=== PATIENT | female | born 1985 | race Caucasian/White ===

== ENCOUNTER 2019-06-30 04:53 | Emergency (ER) | payer BC, SELFPAY ==
[2019-06-30 04:55] VITALS: BP 93/79; PULSE 58; RESP 18; TEMP 36.6; O2SAT 100; BMI 23.3
--- NOTE | 2019-06-30 05:18 | US_ITS ---
STUDY: FIRST TRIMESTER OBSTETRICAL ULTRASOUND REASON FOR EXAM: Female, 33 years old. Bleeding LMP: 03/05/2019 TECHNIQUE: Transvaginal TECHNICAL QUALITY: Adequate. PRIOR ULTRASOUND: None. FINDINGS: There is an irregular deformed gestational sac in the lower uterine segment. The mean sac diameter (MSD) measures 9.2 mm, indicating an estimated gestational age (EGA) of 5 weeks, 4 days. The gestational sac shape is within normal limits. There is no demonstrated yolk sac. The placenta is non-visualized. There is no demonstrated embryo ( pole). The uterus measures 8.3 x 5.3 x 4.1 cm. There is no demonstrated uterine fibroid. The cervix is closed. The right ovary measures 2.1 x 2.9 x 1.4 cm. There is no right ovarian cyst. There is no visualized right adnexal mass or complex lesion. The left ovary measures 4.7 x 2 x 2.3 cm. There is no left ovarian cyst. There is no visualized left adnexal mass or complex lesion. There is no fluid in the cul de sac. US/Transvaginal w/Preg US IMPRESSION: There is an irregular deformed gestational sac in the lower uterine segment without pole or yolk sac. Electronically Signed: Marino Prajapati, at 7:03 EDT Tel , Service support ,
[2019-06-30] MEDS: Ondansetron 4 MG/2 ML Vial IV (05:37)
[2019-06-30] MEDS: Morphine 4 MG/ML Syringe IV (05:37)
[2019-06-30 05:38] LABS: Absolute Lymphocyte Count 2.27 X10^3/uL (0.83-4.51); Absolute Neutrophil Count 8.2 X10^3/uL (2.0-7.7); Basophil# 0.06 X10^3/uL; Basophil% 0.5 % (0-1); Eosinophil# 0.26 X10^3/uL; Eosinophils% 2.2 % (0-5); Hematocrit 41.9 % (37-47); Lymphocyte # 2.27 X10^3/ul (4.0); Lymphocyte % 19.5 % (19-41); Mean Corp Hgb Conc 33.4 g/dL (32-36); Mean Corpuscular Hgb 33.1 pg (27.0-32.0); Mean Corpuscular Volume 99.1 fL (81-99); Mean Platelet Vol. 9.4 fl (6.2-12.0); Monocyte# 0.81 X10^3/uL; NRBC Flagged by Analyzer 0 % (0-5); Neutrophil # 8.18 X10^3/uL (2.7-7.7); Neutrophil % 70.4 % (47-70); Platelet Count 313 K/mm3 (150-450); RBC Distribution Width CV 11.9 % (11.6-14.6); RBC Distribution Width SD 43.5 fl (35.1-43.9); Red Blood Count 4.23 M/mm3 (4.2-5.4); White Blood Count 11.6 K/mm3 (4.4-11.0)
--- NOTE | 2019-06-30 05:53 | ED.VISSUMM ---
- ER Visit Summary Date of Service: 06/30/19 Chief Complaint: Pelvic pain, vaginal bleeding History of Present Illness: The patient is a 33 F who presents with and vaginal bleeding. She is a G1, P0. She actually saw Dr. Cespedes in the office yesterday and had blood work and pelvic ultrasound. She was told that she had twin gestations one gestational sac with a yolk sac and one gestational sac without yolk sac. She is scheduled for repeat blood work tomorrow. She was having some spotting at her appointment. However she reports increased pelvic cramping since that time as well as increased vaginal bleeding which she states is now severe and bright red. No clots. No fevers chest pain shortness of breath. Physical Examination: Afebrile blood pressure 93/79 vitals otherwise normal Moist mucous membranes Heart regular rate and rhythm Lungs clear Abdomen soft Pelvic examination, speculum exam shows heavy/severe bright red vaginal bleeding with large clots. Test Results: CBC notable for white count 11.6. Quantitative hCG of 5132. Blood type is Rh+. Pelvic ultrasound shows an irregular deformed gestational sac in the lower work-up as above. Uterine segment. Emergency Department Course and Treatment: Given that she reports twin gestations on yesterday's ultrasound and today we only see one regular deformed sac she has likely already continuously aborted 1 gestation and has an incomplete of the second gestation. Her bleeding has improved. Her pain is improved as well. I did speak to the garment parts cutter machine who is covering for the practice who agrees with plan for close outpatient follow-up. I did give the patient clear return precautions that if her bleeding becomes heavy again or she has increased pain to return here for reevaluation. Treatment Plan: [] Disposition: Discharge Impression: Incomplete This note was generated with Aver[employer] software. It may contain incorrect words, spelling, and punctuation that were not noted in review of the chart prior to signing ED Disposition - Plan for ED Patient: Referrals: Care Physician,No Primary [Primary Care Provider] -
[2019-06-30 06:26] LABS: hCG Titer Quant., Serum 5132 mIU/mL (1-3)
[2019-06-30 06:56] VITALS: RESP 16
--- NOTE | 2019-06-30 07:17 | ED.DEP ---
ED Disposition - Plan for ED Patient: Instructions: MISCARRIAGE (Incomplete) Referrals: Care Physician,No Primary [Primary Care Provider] - aHlina Darnell MD [STAFF PHYSICIAN] -
--- NOTE | 2019-06-30 07:17 | DCINST.ED_ITS ---
ED Disposition - Plan for ED Patient: Instructions: MISCARRIAGE (Incomplete) Referrals: Care Physician,No Primary [Primary Care Provider] - Halina Darnell MD [STAFF PHYSICIAN] -
[2019-06-30] MEDS: Ketorolac 30 MG/ML Syringe IV (07:34)
== END 2019-06-30 07:56 | disposition home or self-care (01) ==
PROVIDERS: Emergency Provider Emergency Medicine
DX: O03.4 Incomplete spontaneous abortion without complication (principal)
CPT/HCPCS: 76817; 84702; 85025; 86900; 86901; 96374; 96375; 99284; A4216; J2405

== ENCOUNTER 2021-03-08 03:25 | Inpatient (IN) | payer BC, SELFPAY ==
[2021-03-08] VITALS (45 sets, daily range): BP systolic 102–145; BP diastolic 53–87; PULSE 72–101; RESP 12–20; TEMP 36.6–37.3; O2SAT 92–99; BMI 31.4
--- NOTE | 2021-03-08 | FALS_PTH ---
PATIENT: YAIMA GALAVIZ LOC: [facility] U#:[id number] AGE/SX: 35/F ROOM: WP008 RE03/08/[address]: Dr. Imelda Kerns MD : 1985 BED: 1 DIS: 03/10/2021 SPEC #: [id number] RECD: 03/09/21 04:20 STATUS: NAINA GARCIAAnna #: [id number] KIRA: 03/08/21 00:[address]: Imelda Kerns DEPT: SURGICAL PATHOLOGY RECD BY: Valdo Tolentino ENTERED: 03/09/21 07:42 SP TYPE: FALL TUBES OTHR DR: No Primary Care Phys Tissues: Fallopian tube Procedures: Surgery Specimen Level II HEADER OPERATION: Tubal ligation PRE-OP DIAGNOSIS: Sterilization TISSUE SUBMITTED: Fallopian tubes MICROSCOPIC DIAGNOSIS Bilateral fallopian tubes, salpingectomy: Bilateral fallopian tubes including fimbrial ends, no pathologic diagnosis. MARTINEZ:fozia 03/10/2021 MICROSCOPIC DESCRIPTION Slides are reviewed. GROSS DESCRIPTION Received in fixative is one container labeled with the patient's name and designated bilateral fallopian tubes. The specimen consists of bilateral fallopian tubes including fimbrial ends measuring 6 cm in length and 0.5 cm in diameter and 5 cm in length and 0.5 cm in diameter. The fallopian tubes are not identified as right or left. Sections reveal unremarkable cut surfaces. Foster Parent sections are submitted in two cassettes with each cassette containing one fallopian tube. / SJ:fozia 03/09/21 TC:4 CPT: 06554 x2
--- NOTE | 2021-03-08 03:27 | HP.PCM_ITS ---
History Date of Admission: 03/08/21 Final CHOCO: 03/08/21 Gestational age: 40 Weeks and 0 Days History of this : Patient presents with ctxs. Surgical History: Surgical History (Last Updated 03/08/21 @ 03:[address] Imelda Kerns MD) H/O LEEP Z98.890 Hx of eye surgery Z98.890 Previous back surgery Z98.890 Allergies amoxicillin Allergy (Verified 03/08/21 02:08) Hives Home Medications: Home Medications Vits [Prenatabs FA] 1 tab PO DAILY 06/30/19 Smoking Status: Current some day smoker Alcohol: None Number of Fetus(es): 1 NST - FHR Rate Baby A Baseline: 150 Variability:: Moderate Accelerations:: 15 x 15 Decelerations:: None Uterine Activity:: Q 3-5 minutes History Past Pregnancies: Past Pregnancies Delivery Date Name GA/ Weeks Outcome Route Wt Infant Sex Labor Length Anesthesia Delivery Location Provider FOB Labs: See [facility] H[facility]P Physical Exam Vitals: Vital Signs Pulse BP 83 144/79 H 03/08/21 02:02 03/08/21 02:02 General: Alert, Oriented x3 Abdomen: Soft, Non Tender, Non-Distended, Gravid Neurological: Cranial nerves II-XII grossly intact [employer]ER [employer] BRUSHES: Normal external genitalia Estimated gestational size: Appropriate for gestational size Presentation: Cephalic Cervix Dilation (cm): 2.5 Station: -2 Effacement (%): 90 Assessment/Plan This is a 35 year-old, at 40 weeks gestational age. Admit to L&D for labor COVID test ordered Elevated BP - likely from pain but will check preE labs Pain - epidural H/o LEEP - some scar tissue in cervix GBS negative EFW - less than 4500g, patient with adequate pelvis
[2021-03-08] MEDS: Lactated Ringers 1,000 ML 50 ML IV (03:50)
[2021-03-08] MEDS: Lactated Ringers 500 ML 999 ML IV (03:51)
[2021-03-08 04:01] LABS: Absolute Lymphocyte Count 1.23 X10^3/uL (0.83-4.51); Absolute Neutrophil Count 10.9 X10^3/uL (2.0-7.7); Basophil# 0.03 X10^3/uL; Basophil% 0.2 % (0-1); Eosinophil# 0.06 X10^3/uL; Eosinophils% 0.5 % (0-5); Hematocrit 40.1 % (37-47); Hemoglobin 13.3 g/dL (12.0-15.0); Lymphocyte # 1.23 X10^3/ul (4.0); Lymphocyte % 9.5 % (19-41); Mean Corp Hgb Conc 33.2 g/dL (32-36); Mean Corpuscular Hgb 31.4 pg (27.0-32.0); Mean Corpuscular Volume 94.8 fL (81-99); Mean Platelet Vol. 10.6 fl (6.2-12.0); Monocyte% 5.4 % (0-10); NRBC Flagged by Analyzer 0 % (0-5); Neutrophil # 10.86 X10^3/uL (2.7-7.7); Neutrophil % 83.9 % (47-70); Platelet Count 216 K/mm3 (150-450); RBC Distribution Width CV 13.2 % (11.6-14.6); RBC Distribution Width SD 45.8 fl (35.1-43.9); Red Blood Count 4.23 M/mm3 (4.2-5.4); White Blood Count 12.9 K/mm3 (4.4-11.0)
[2021-03-08 04:11] LABS: AST(SGOT) 18 U/L (15-37); Alanine Aminotransfer ALT/SGPT 28 U/L (13-56); Creatinine, Serum 0.65 mg/dL (0.55-1.02); EST Glomerular Filtration Rate 111 mL/min (>60); Est Glom Filt Rate - Afr Amer 134 mL/min (>60); Estimated Creatinine Clearance 105.31 ml/min; Uric Acid 4.2 mg/dL (2.6-6.0)
[2021-03-08] MEDS: fentaNYL-bupivacaine (epidural) 100 ML BAG EPIDURAL ×3 (05:57→15:04)
--- NOTE | 2021-03-08 08:14 | PCM.PN.BLA ---
Progress Note Comfortable with epidural. Cervix 4/90/-1. head well applied. AROM performed for small amount of clear fluid. Category 1 tracing. Will start Pitocin for augmentation. STROKE Vital Signs/Narrative: Vital Signs Temp Pulse BP Pulse Ox 03/08/21 07:43 80 113/58 L 03/08/21 06:14 85 105/56 L 03/08/21 06:13 97.8 F 03/08/21 05:30 74 126/60 H 03/08/21 05:27 85 139/67 H 03/08/21 05:26 97 03/08/21 05:23 91 125/78 H 03/08/21 05:21 87 97 03/08/21 05:17 83 138/71 H 03/08/21 05:16 98 03/08/21 05:12 85 125/66 H 03/08/21 05:11 81 128/69 H 97 03/08/21 05:08 98.1 F 88 130/67 H 03/08/21 05:06 86 96 03/08/21 05:04 80 135/66 H 03/08/21 05:02 83 144/75 H 03/08/21 05:01 97 03/08/21 04:57 100 145/87 H 03/08/21 04:56 98 03/08/21 04:52 86 145/87 H 03/08/21 04:51 97 03/08/21 04:48 72 92 03/08/21 04:47 75 134/82 H 03/08/21 04:46 90 95
[2021-03-08] MEDS: Oxytocin 30 units/NS 500 ml 30 UNITS/500 ML IV.SOLN IV (08:36)
[2021-03-08] MEDS: Lactated Ringers 1,000 ML 200 ML IV ×2 (09:32→14:28)
--- NOTE | 2021-03-08 18:53 | PCM.PN.BLA ---
Progress Note Delayed entry. At bedside to evaluate patient. heart rate tracing with recurrent late decelerations with each contraction. No descent of noted. Pubic arch felt to be narrow. Recommended a section for intolerance to labor, suspected cephalopelvic disproportion, arrest of descent. Discussed risk, benefits, alternatives to and patient desires to proceed. STROKE Vital Signs/Narrative: Vital Signs Temp Pulse Resp BP Pulse Ox 03/08/21 18:40 99.0 F 93 16 135/69 H 97 03/08/21 18:38 98 135/69 H 03/08/21 17:55 94 117/57 L 03/08/21 17:27 93 116/68
[2021-03-08] MEDS: Cefazolin 2 GM in 0.9% Normal Saline 100 ML IV (19:12)
--- NOTE | 2021-03-08 20:23 | OP.PCM_ITS ---
Problem List (1) 40 weeks gestation of Status: Acute (2) Primiparous Status: Acute (3) Arrest of descent, delivered, current hospitalization Status: Acute (4) Delivery by section Status: Acute (5) CPD (cephalo-pelvic disproportion) Status: Acute (6) Sterilization Status: Acute Report of Operation Date of Procedure: 03/08/21 Pre-Operative Diagnosis: 40 week gestation, primiparous patient, intolerance to labor, suspected CPD, arrest of descent, request for permanent sterilization Post-Operative Diagnosis: As above Surgery/Procedure Performed:: PLTCS via pfanennstiel incision Description of Surgical Findings:: Indications: Presented at 2.5 cm with contractions at 40 week gestation. Labor was augmented with pitocin and AROM. Patient made it to complete and was pushing for about 3 hours. FHT then showed recurrent late decelerations with each contraction. Narrow pubic arch felt and suspected CPD. Unable to perform vacuum assisted delivery given suspected CPD and station. The patient requested sterilization. Discussed risk, benefits, alternatives to sterilization. She understands it is permanent and irreversible. She understands there is a risk of regret. Discussed all other options for control. She is 100% certain that she does not desire additional children in the future, and there is a risk of regret. Infant in vertex presentation. Meconium stained fluid. Normal appearing uterus, bilateral tubes, bilateral ovaries. Type of Anesthesia:: Epidural Special Medications: None Specimen's removed: Placenta Drains: Bernardo Estimated Blood Loss (mL): 1000 Fluids Replaced: 1000 Description of Procedure: Patient was taken back to the operating room where epidural anesthesia was found to be adequate. She was prepped and draped in the dorsal position with a leftward tilt. A Pfannenstiel skin incision was made with a scalpel and this was carried down to the underlying layer of fascia. The fascia was incised in midline. The fascia was extended laterally using Yun scissors. The fascia was dissected off the rectus muscles using a combination of sharp and blunt dissection. The rectus muscles were the midline. The peritoneum was entered bluntly with good visualization of the bladder. A low transverse incision was made on the uterus with a scalpel. A nurse provided a gentle hand from below in the vagina to assist with elevating the head to the hysterotomy. The 's head was flexed and easily brought to the hysterotomy. The 's head, followed by shoulders and body were delivered without any force or delay. The cord was immediately clamped and cut and the infant was handed off to the nursery staff. The placenta was removed with manual extraction. The uterus was cleared of all clot and debris. The uterus was exteriorized. The uterus was closed with Vicryl in a running locked fashion. Several additional [id number] sutures were placed for hemostasis. Confirmed that the patient desired sterilization. The left fallopian tube was followed out to the fimbriated end and using the LigaSure device the mesosalpinx was serially clamped, cauterized, and transected until reaching the level of the cornua. Once at the level of the cornua, the left fallopian tube was transected to remove the tube. The same was performed to the right fallopian tube. Bilateral tubes were sent to pathology for review. The uterus was then placed back into the abdomen. Hysterotomy was noted to be hemostatic. Florentin was placed over the hysterotomy. The peritoneum was closed with Vicryl in a running fashion. The fascia was closed with PDS in a running fashion. The subcutaneous space was irrigated and made hemostatic with Bovie cautery. The skin was closed with Monocryl subcuticular fashion. Steri-Strips and dressing were placed. Patient was taken to the recovery room in stable condition. Instrument, sponge, needle counts were correct. Grafts/Implants Used: None - Complications None - Admit VTE Documentation VTE Present on Admission: No VTE Mechan Device Prophylaxis: [facility] [place]'s VTE Pharm Prophylaxis ordered?: Yes Delivery Classification: MAHSA Final CHOCO: 03/08/21 Gestational age: 40 Weeks and 0 Days Type of Anesthesia:: Epidural Indications for : Nonreassuring Status Amniotic Membrane Rupture Type: Artificial Amniotic Fluid Description: Moderate meconium Placenta Disposition: [facility] Drain: Bernardo to straight drain Cord Entanglement: None Esitmated Blood Loss (ml): 1000 Delayed cord clamping: No Antibiotic Given: Ancef 2 grams IV x1, Zithromax 500 mg/5 mL X1 Pt instructed on risks of surgery: Bleeding, Infection, Permanency, Injury to surrounding structure(s) including bowel and bladder, Availability of other non- permanent control options Complications: None
[2021-03-08] MEDS: Oxytocin 30 units/NS 500 ml 30 UNITS/500 ML IV.SOLN 167 UNITS IV (20:36)
[2021-03-08] MEDS: Ketorolac 30 MG/ML Syringe IV (21:25)
[2021-03-08] MEDS: Lactated Ringers 1,000 ML 100 ML IV (23:58)
[2021-03-09] VITALS (8 sets, daily range): BP systolic 97–107; BP diastolic 48–65; PULSE 75–94; RESP 16–18; TEMP 35.8–36.7; O2SAT 92–98
[2021-03-09] MEDS: Acetaminophen 500 MG Tablet 1000 MG PO ×4 (00:36→18:10)
--- NOTE | 2021-03-09 00:56 | NURSING ---
Late entry: RN removed pt epidural catheter at 2340 on 03/08/21. Pt tolerated well, rated pain 0/10. Tip intact, band-aid applied.
[2021-03-09] MEDS: Ibuprofen 600 MG Tablet PO ×4 (03:22→21:26)
[2021-03-09 05:13] LABS: Hematocrit 33.6 % (37-47); Mean Corp Hgb Conc 32.7 g/dL (32-36); Mean Corpuscular Hgb 31.5 pg (27.0-32.0); Mean Corpuscular Volume 96.3 fL (81-99); Mean Platelet Vol. 10.9 fl (6.2-12.0); Platelet Count 183 K/mm3 (150-450); RBC Distribution Width CV 13.4 % (11.6-14.6); Red Blood Count 3.49 M/mm3 (4.2-5.4); White Blood Count 15.4 K/mm3 (4.4-11.0)
--- NOTE | 2021-03-09 08:42 | PCM.PN.OB ---
Patient Problems: Active and Suspected Problems 40 weeks gestation of (Acute) Primiparous (Acute) Arrest of descent, delivered, current hospitalization (Acute) Delivery by section (Acute) CPD (cephalo-pelvic disproportion) (Acute) Sterilization (Acute) Subjective: Patient seen at bedside. Skin to skin with infant. Patient reports feeling good. Pain is controlled at this time. She is breast feeding infant with support from . Patient denies any dizziness, SOB or CP. Patient to ambulate more today. Anticipate discharge home tomorrow. Objective: HGB 13.3-11.0 Dressing is dry and intact 2 below U - Physical Exam Vitals/I&O's: Vital Signs Temp Pulse Resp BP Pulse Ox 97 F L 87 18 106/61 94 03/09/21 08:18 03/09/21 08:18 03/09/21 08:18 03/09/21 08:18 03/09/21 06:23 Oxygen Delivery Method Room Air Weight: 183 lb Body Mass Index (BMI) 31.4 Intake and Output for Last 24 Hours 03/07/21 03/08/21 03/09/21 23:59 23:59 23:59 Intake Total 5329.06 / 5329.06 128.33 / 128.33 Output Total 660 / 660 1280 / 1280 Balance 4669.06 / 4669.06 -1151.67 / -1151.67 General: Alert, Oriented x3, Cooperative HEENT: Atraumatic Oral: Moist Mucosa Lungs: Normal air movement Cardiovascular: Regular rate Abdomen: Soft, Non-Distended, Passing Flatus Extremities: No edema, No Calf Tenderness - SCD's present on patient Skin: No rashes Neurological: Cranial nerves II-XII grossly intact Psych/Mental Status: Normal Affect, Appropriate Microbiology Past 72 Hours 03/08/21 03:50 Mucosa - Nose SARS-CoV-2 Antigen (Rapid) - Final Laboratory Results 03/09/21 04:55: WBC 15.4 H, RBC 3.49 L, Hgb 11.0 L, Hct 33.6 L, MCV 96.3, MCH 31.5, MCHC 32.7, RDW Std Deviation 47.0 H, RDW Coeff of Tommy 13.4, Plt Count 183, MPV 10.9 Current Medications Acetaminophen (Acetaminophen 500 Mg Tablet) 1,000 mg PO Q6H [facility] Last Admin: 03/09/21 06:22 Dose: 1,000 mg Documented by: Bisacodyl (Bisacodyl 10 Mg Suppository) 10 mg RC UD PRN PRN Reason: If no BM Diphenhydramine HCl (Diphenhydramine 25 Mg Capsule) 25 mg PO Q6H PRN PRN PRN Reason: ITCHING Stop: 03/09/21 20:40 Enoxaparin Sodium (Enoxaparin 40 Mg/0.4 Ml Syringe) 40 mg SC DAILY [facility] Hydrocortisone (Hydrocortisone 2.5% Crm) 1 applic TOPICAL TID PRN PRN; Protocol PRN Reason: Discomfort Ibuprofen (Ibuprofen 600 Mg Tablet) 600 mg PO Q6H [facility] Last Admin: 03/09/21 03:22 Dose: Not Given Documented by: Methylergonovine Maleate (Methylergonovine 0.2 Mg/Ml Ampul) 0.2 mg IM X1 PRN PRN Reason: Uterine Atony Nalbuphine HCl (Nalbuphine 10 Mg/Ml Ampul) 5 mg IV Q3H PRN PRN PRN Reason: ITCHING Stop: 03/09/21 20:40 Naloxone HCl (Naloxone 0.4 Mg/Ml Syringe) 0.02 mg IV Q1M PRN PRN Reason: RR <10 and pt unresponsive Ondansetron HCl (Ondansetron 4 Mg/2 Ml Vial) 4 mg IV Q4H PRN PRN PRN Reason: Nausea Oxycodone HCl (Oxycodone 5 Mg Tablet) 5 - 10 mg PO Q4H PRN PRN PRN Reason: Pain Score 4-10 Prochlorperazine Edisylate (Prochlorperazine 10 Mg/2 Ml Vial) 10 mg IV Q6H PRN PRN PRN Reason: NAUSEA Senna/Docusate Sodium (Senna/Docusate Sodium 1 Tablet) 0 tablet PO DAILY [facility] Simethicone (Simethicone 80 Mg Tablet) 80 mg PO PCHS PRN PRN Reason: Indigestion/stomach pain Sodium Chloride (0.9% Saline Lock 10 Ml Syringe) 5 - 15 ml IV UD PRN PRN Reason: SALINE FLUSH Medical Necessity - Tobacco Use Smoking Status: Former smoker Assessment/Plan All Active Problems 40 weeks gestation of (Acute) Primiparous (Acute) Arrest of descent, delivered, current hospitalization (Acute) Delivery by section (Acute) CPD (cephalo-pelvic disproportion) (Acute) Sterilization (Acute) POD #1 Primary C/S with BTL Pain control Routine care Ambulation Breast feeding support Anticipate discharge home tomorrow
[2021-03-09] MEDS: Enoxaparin 40 MG/0.4 ML Syringe SC (09:03)
[2021-03-09] MEDS: Senna/Docusate Sodium 1 Tablet PO (09:03)
[2021-03-09] MEDS: oxyCODONE 5 MG Tablet PO (21:26)
[2021-03-10] MEDS: Acetaminophen 500 MG Tablet 1000 MG PO ×3 (00:46→12:19)
[2021-03-10 02:40] VITALS: BP 115/72; PULSE 83; RESP 18; TEMP 36.2
[2021-03-10] MEDS: Ibuprofen 600 MG Tablet PO ×2 (02:43→08:48)
[2021-03-10 07:32] VITALS: BP 102/77; PULSE 77; RESP 18; TEMP 35.8; O2SAT 95
[2021-03-10] MEDS: oxyCODONE 5 MG Tablet PO (07:40)
[2021-03-10] MEDS: Senna/Docusate Sodium 1 Tablet PO (09:42)
[2021-03-10] MEDS: Enoxaparin 40 MG/0.4 ML Syringe SC (09:43)
--- NOTE | 2021-03-10 12:00 | PN.OBGYN_ITS ---
Patient Problems: Active and Suspected Problems 40 weeks gestation of (Acute) Primiparous (Acute) Arrest of descent, delivered, current hospitalization (Acute) Delivery by section (Acute) CPD (cephalo-pelvic disproportion) (Acute) Sterilization (Acute) Subjective: Doing well per nursing and patient. Ambulating and taking p.o. without difficulty. Voiding and passing flatus. Denies headache, visual changes, chest pain, shortness of breath, leg pain, increased vaginal bleeding or clots. Lochia normal. Pain controlled. Breast-feeding without difficulty and assistance with services. Planning discharge home today. - Physical Exam Vitals/I&O's: Vital Signs Temp Pulse Resp BP Pulse Ox 96.5 F L 77 18 102/77 95 03/10/21 07:32 03/10/21 07:32 03/10/21 07:32 03/10/21 07:32 03/10/21 07:32 Oxygen Delivery Method Room Air Weight: 183 lb Body Mass Index (BMI) 31.4 Intake and Output for Last 24 Hours 03/08/21 03/09/21 03/10/21 23:59 23:59 23:59 Intake Total 5329.06 / 5329.06 128.33 / 128.33 Output Total 660 / 660 1280 / 1280 Balance 4669.06 / 4669.06 -1151.67 / -1151.67 General: Alert, Oriented x3, Cooperative HEENT: Atraumatic, Normocephalic Neck: Trachea Midline Lungs: Clear to auscultation, Normal air movement, No rhonchi, No wheeze Cardiovascular: Regular rate, Regular Rhythm, No murmurs Abdomen: Bowel Sounds Present, Soft, Non Tender - Fundus firm 4 below U. Dressing dry and intact. Extremities: No edema Psych/Mental Status: Normal Affect, Appropriate Microbiology Past 72 Hours 03/08/21 03:50 Mucosa - Nose SARS-CoV-2 Antigen (Rapid) - Final Current Medications Acetaminophen (Acetaminophen 500 Mg Tablet) 1,000 mg PO Q6H [facility] Last Admin: 03/10/21 06:34 Dose: 1,000 mg Documented by: Bisacodyl (Bisacodyl 10 Mg Suppository) 10 mg RC UD PRN PRN Reason: If no BM Enoxaparin Sodium (Enoxaparin 40 Mg/0.4 Ml Syringe) 40 mg SC DAILY [facility] Last Admin: 03/10/21 09:43 Dose: 40 mg Documented by: Hydrocortisone (Hydrocortisone 2.5% Crm) 1 applic TOPICAL TID PRN PRN; Protocol PRN Reason: Discomfort Ibuprofen (Ibuprofen 600 Mg Tablet) 600 mg PO Q6H [facility] Last Admin: 03/10/21 08:48 Dose: 600 mg Documented by: Methylergonovine Maleate (Methylergonovine 0.2 Mg/Ml Ampul) 0.2 mg IM X1 PRN PRN Reason: Uterine Atony Naloxone HCl (Naloxone 0.4 Mg/Ml Syringe) 0.02 mg IV Q1M PRN PRN Reason: RR <10 and pt unresponsive Ondansetron HCl (Ondansetron 4 Mg/2 Ml Vial) 4 mg IV Q4H PRN PRN PRN Reason: Nausea Oxycodone HCl (Oxycodone 5 Mg Tablet) 5 - 10 mg PO Q4H PRN PRN PRN Reason: Pain Score 4-10 Last Admin: 03/10/21 07:40 Dose: 10 mg Documented by: Prochlorperazine Edisylate (Prochlorperazine 10 Mg/2 Ml Vial) 10 mg IV Q6H PRN PRN PRN Reason: NAUSEA Senna/Docusate Sodium (Senna/Docusate Sodium 1 Tablet) 0 tablet PO DAILY [facility] Last Admin: 03/10/21 09:42 Dose: 1 tablet Documented by: Simethicone (Simethicone 80 Mg Tablet) 80 mg PO PCHS PRN PRN Reason: Indigestion/stomach pain Sodium Chloride (0.9% Saline Lock 10 Ml Syringe) 5 - 15 ml IV UD PRN PRN Reason: SALINE FLUSH Medical Necessity - Tobacco Use Smoking Status: Former smoker Assessment/Plan All Active Problems 40 weeks gestation of (Acute) Primiparous (Acute) Arrest of descent, delivered, current hospitalization (Acute) Delivery by section (Acute) CPD (cephalo-pelvic disproportion) (Acute) Sterilization (Acute) A:Primary LTCS Bilateral salpingectomy P: 1. Routine postoperative and care. 2. Vital signs stable 3. Pain management, will send prescription for oxycodone. 4. Follow-up in 1 week for incision check in 6 weeks for visit. 5. Charge home today.
--- NOTE | 2021-03-10 12:08 | PCM.DC.SUM ---
Discharge Date and Diagnosis - Problem List Patient Problems: Active and Suspected Problems 40 weeks gestation of (Acute) Primiparous (Acute) Arrest of descent, delivered, current hospitalization (Acute) Delivery by section (Acute) CPD (cephalo-pelvic disproportion) (Acute) Sterilization (Acute) Date of Admission: 03/08/21 - Primary Discharge Diagnosis Acute Problems: Active Problems 40 weeks gestation of (Acute) Primiparous (Acute) Arrest of descent, delivered, current hospitalization (Acute) Delivery by section (Acute) CPD (cephalo-pelvic disproportion) (Acute) Sterilization (Acute) Hospital Course and Treatment Summary of Care Provided: The patient is a 35 year old F [] Patient Problems: Active and Suspected Problems 40 weeks gestation of (Acute) Primiparous (Acute) Arrest of descent, delivered, current hospitalization (Acute) Delivery by section (Acute) CPD (cephalo-pelvic disproportion) (Acute) Sterilization (Acute) - Physical Exam Vitals/I&O's: Vital Signs Temp Pulse Resp BP Pulse Ox 96.5 F L 77 18 102/77 95 03/10/21 07:32 03/10/21 07:32 03/10/21 07:32 03/10/21 07:32 03/10/21 07:32 Oxygen Delivery Method Room Air Weight: 183 lb Body Mass Index (BMI) 31.4 Intake and Output for Last 24 Hours 03/08/21 03/09/21 03/10/21 23:59 23:59 23:59 Intake Total 5329.06 / 5329.06 128.33 / 128.33 Output Total 660 / 660 1280 / 1280 Balance 4669.06 / 4669.06 -1151.67 / -1151.67 Microbiology Past 72 Hours 03/08/21 03:50 Mucosa - Nose SARS-CoV-2 Antigen (Rapid) - Final Current Medications Acetaminophen (Acetaminophen 500 Mg Tablet) 1,000 mg PO Q6H [facility] Last Admin: 03/10/21 06:34 Dose: 1,000 mg Documented by: Bisacodyl (Bisacodyl 10 Mg Suppository) 10 mg RC UD PRN PRN Reason: If no BM Enoxaparin Sodium (Enoxaparin 40 Mg/0.4 Ml Syringe) 40 mg SC DAILY [facility] Last Admin: 03/10/21 09:43 Dose: 40 mg Documented by: Hydrocortisone (Hydrocortisone 2.5% Crm) 1 applic TOPICAL TID PRN PRN; Protocol PRN Reason: Discomfort Ibuprofen (Ibuprofen 600 Mg Tablet) 600 mg PO Q6H [facility] Last Admin: 03/10/21 08:48 Dose: 600 mg Documented by: Methylergonovine Maleate (Methylergonovine 0.2 Mg/Ml Ampul) 0.2 mg IM X1 PRN PRN Reason: Uterine Atony Naloxone HCl (Naloxone 0.4 Mg/Ml Syringe) 0.02 mg IV Q1M PRN PRN Reason: RR <10 and pt unresponsive Ondansetron HCl (Ondansetron 4 Mg/2 Ml Vial) 4 mg IV Q4H PRN PRN PRN Reason: Nausea Oxycodone HCl (Oxycodone 5 Mg Tablet) 5 - 10 mg PO Q4H PRN PRN PRN Reason: Pain Score 4-10 Last Admin: 03/10/21 07:40 Dose: 10 mg Documented by: Prochlorperazine Edisylate (Prochlorperazine 10 Mg/2 Ml Vial) 10 mg IV Q6H PRN PRN PRN Reason: NAUSEA Senna/Docusate Sodium (Senna/Docusate Sodium 1 Tablet) 0 tablet PO DAILY [facility] Last Admin: 03/10/21 09:42 Dose: 1 tablet Documented by: Simethicone (Simethicone 80 Mg Tablet) 80 mg PO [facility]S PRN PRN Reason: Indigestion/stomach pain Sodium Chloride (0.9% Saline Lock 10 Ml Syringe) 5 - 15 ml IV UD PRN PRN Reason: SALINE FLUSH Home Medications: Medications to take at Discharge Vits [Prenatabs FA ] 1 tab PO DAILY 06/30/19 Senna/Docusate Sodium [Senokot-S] 1 tablet PO DAILY #30 tablet 03/10/21 Following Prescriptions Were Given to Patient: Senna/Docusate Sodium [Senokot-S] 1 tablet PO DAILY #30 tablet Transmission Status: Pending to [facility] Primary Care Physician: Care Physician,No Primary [Primary Care Provider] - Medical Necessity - Tobacco Use Smoking Status: Former smoker
[2021-03-10 12:10] VITALS: BP 107/69; PULSE 89; RESP 16; TEMP 36.1
--- NOTE | 2021-03-10 12:12 | DCINST_ITS ---
Discharge Diet: No Restrictions Discharge Activity: May Not Drive - for 2 weeks or while taking narcotic pain meds., May Shower, May Take a Tub Bath - in 7 days. May resume sexual activity in: 4-6 weeks Weight Bearing Status: Full weight bearing Lifting Restrictions: 20 pounds Additional Activity Instructions:: Nothing in the vagina for 4-6 weeks. You may return to work/school in 6 weeks. Call your doctor if your incision/area has: Continuous Slow Oozing, Sudden Increased Bleeding, Increased Pain/ Swelling, Increased Redness, Foul Smelling Discharge Call your doctor if you observe: Fever of 101 or Higher Suture Line Care: Avoid Pulling/Pushing, Avoid Pinching/Bending Additional Instructions: If you experience any of the following, contact your healthcare provider. * Bleeding that soaks a pad every hour for 2 hours * Fever 100.4 or higher * Unrelieved incision or abdominal pain * Swelling, redness, discharge or bleeding from your incision or episiotomy site * Your incision begins to separate * Problems urinating (including inability to urinate or burning while urinating). * Visual changes * Severe headache * Flu-like symptoms * Pain or redness in one of both of your breasts * Pain, warmth, tenderness or swelling in your legs, especially the calf area * Frequent nausea and vomiting * Symptoms of depression or anxiety If you experience any of the following, call 911 or go to the nearest Emergency Room. * Chest pain * Problems breathing * Seizure activity * Partial or complete paralysis of a body part, slurred speech, weakness or drooping of the face, or a sudden inability to walk or hold your balance Allergies/Adverse Reactions: Allergies amoxicillin Allergy (Verified 03/08/21 02:08) Hives Medications to take at Discharge Vits [Prenatabs FA ] 1 tab PO DAILY 06/30/19 Senna/Docusate Sodium [Senokot-S] 1 tablet PO DAILY #30 tablet 03/10/21 The following prescriptions were given: Senna/Docusate Sodium [Senokot-S] 1 tablet PO DAILY #30 tablet Transmission Status: Pending to [facility] Follow-Up: Call to make an appointment with your doctor for an incision check in 1-2 weeks. You will also need a 6 week post- follow up appointment. Test results from this visit will be discussed in further detail at your follow- up appointment, if applicable. Please Follow Up With: Carolyn Francois DO Primary Care Physician: Care Physician,No Primary [Primary Care Provider] -
[2021-03-10 13:59] LABS: Pathology Specimen OB SEE PATHOLOGY REPORT
--- NOTE | 2021-03-14 19:38 | NURSING ---
follow up phone call complete. Mom & Baby doing well
== END 2021-03-10 12:25 | disposition home or self-care (01) | DRG 785 ==
LOC: WPOUT 03:27 → WP 03:28
PROVIDERS: Obstetrics & Gynecology; Admitting Provider Obstetrics & Gynecology; Visit Provider Obstetrics & Gynecology
DX: O76 Abnormality in fetal heart rate and rhythm complicating labor and delivery (principal); O33.9 Maternal care for disproportion, unspecified; Z37.0 Single live birth; Z3A.40 40 weeks gestation of pregnancy; F17.200 Nicotine dependence, unspecified, uncomplicated; O99.334 Smoking (tobacco) complicating childbirth; O62.1 Secondary uterine inertia; Z30.2 Encounter for sterilization; O77.0 Labor and delivery complicated by meconium in amniotic fluid
CPT/HCPCS: 59025; 59050; 82565; 84450; 84460; 84550; 85025; 85027; 86850; 86900; 86901; 87426; 88302; 99218; J7120; G0378; J2405; J3490